=== PATIENT | female | born 1960 | race Caucasian/White ===

== ENCOUNTER 2017-08-27 03:05 | Emergency (ER) | payer OTHER ==
[2017-08-27] MEDS: KETOROLAC 60 MG INJ IM (04:46)
== END 2017-08-27 05:00 | disposition home or self-care (01) ==
LOC: FTE 03:05
DX: M54.42 Lumbago with sciatica, left side (principal)
CPT/HCPCS: 96372; 99284-25

== ENCOUNTER 2017-10-06 06:52 | Emergency (ER) | payer OTHER ==
[2017-10-06] MEDS: KETOROLAC 30 MG INJ IM (07:12)
[2017-10-06] MEDS: HYDROCODONE/APAP (5/325) TAB PO (07:12)
[2017-10-06] MEDS: ONDANSETRON (ODT) 4 MG TAB ODT (07:12)
== END 2017-10-06 07:32 | disposition home or self-care (01) ==
LOC: FTE 06:52
DX: M25.552 Pain in left hip (principal); I10 Essential (primary) hypertension
CPT/HCPCS: 96372; 99284-25

== ENCOUNTER 2017-10-09 02:36 | Emergency (ER) | payer OTHER ==
[2017-10-09] MEDS: morphine 2 MG INJ IV ×2 (03:35→03:44)
[2017-10-09] MEDS: ONDANSETRON 4 MG INJ IV (03:36)
[2017-10-09 03:55] LABS: ADD MAN DIFF? NO
[2017-10-09 04:05] LABS: BASOPHIL # 0.1 10^3/ul (0.0-0.1); BASOPHILS % 1.2 % (0.0-2.0); EOSINOPHILS # 0.2 10^3/ul (0.0-0.5); EOSINOPHILS % 3.5 % (0.0-7.0); HEMATOCRIT 35.8 % (37.0-47.0); LYMPHOCYTES # 1.1 10^3/ul (0.8-2.9); LYMPHOCYTES % 18.9 % (15.0-51.0); MEAN CORPUSCULAR HEMOGLOBIN 29.3 pg (29.0-33.0); MEAN CORPUSCULAR HGB CONC 33.5 g/dl (32.0-37.0); MEAN CORPUSCULAR VOLUME 87.5 fl (82.0-101.0); MEAN PLATELET VOLUME 9.4 fl (7.4-10.4); MONOCYTE # 0.7 10^3/ul (0.3-0.9); MONOCYTES % 11.4 % (0.0-11.0); NEUTROPHIL # 3.9 10^3/ul (1.6-7.5); NEUTROPHILS % 64.7 % (39.0-77.0); PLATELET COUNT 397 10^3/UL (140-415); RED BLOOD COUNT 4.09 10^6/ul (4.20-5.40)
[2017-10-09 04:15] LABS: INR 1.09; PROTIME 14.3 Sec (11.9-14.9); PT RATIO 1.1
[2017-10-09 04:16] LABS: PARTIAL THROMBOPLASTIN TIME 33.1 Sec (25.0-35.0)
[2017-10-09 04:18] LABS: ANION GAP 16 (8-16); BLOOD UREA NITROGEN 18 mg/dl (7-20); CARBON DIOXIDE 27 mmol/L (21-31); CHLORIDE 105 mmol/L (97-110); CREATININE 0.58 mg/dl (0.44-1.00); GLUCOSE 92 mg/dl (70-220); POTASSIUM 3.8 mmol/L (3.5-5.1); SODIUM 144 mmol/L (135-144)
[2017-10-09 04:26] LABS: B-TYPE NATRIURETIC PEPTIDE 75 PG/ML (0-125)
== END 2017-10-09 06:05 | disposition home or self-care (01) ==
LOC: E/R 02:36
DX: L03.116 Cellulitis of left lower limb (principal); R60.0 Localized edema; L03.115 Cellulitis of right lower limb; I10 Essential (primary) hypertension
CPT/HCPCS: 36415; 71045; 80048; 83880; 85025; 85610; 85730; 96374; 96375; 99284-25

== ENCOUNTER 2018-01-05 03:14 | Emergency (ER) | payer OTHER ==
[2018-01-05] MEDS: ONDANSETRON (ODT) 4 MG TAB ODT (03:50)
[2018-01-05] MEDS: morphine 4 MG/ML VIAL IM (03:51)
== END 2018-01-05 04:27 | disposition home or self-care (01) ==
LOC: FTE 03:14
DX: G89.4 Chronic pain syndrome (principal)
CPT/HCPCS: 96372; 99284-25

== ENCOUNTER 2018-06-26 19:16 | Emergency (ER) | payer OTHER ==
[2018-06-26 22:43] LABS: URINE BLOOD (Dip) POC Trace-intact (NEGATIVE); URINE GLUCOSE (Dip) POC Negative (NEGATIVE); URINE KETONES (Dip) POC Negative (NEGATIVE); URINE LEUKOCYTE EST (Dip) POC Negative (NEGATIVE); URINE NITRITE (Dip) POC Negative (NEGATIVE); URINE TOTAL PROTEIN POC Negative (NEGATIVE)
[2018-06-26] MEDS: PHENAZOPYRIDINE 100 MG TAB PO (23:46)
[2018-06-26] MEDS: ACETAMINOPHEN 325 MG TAB PO (23:46)
[2018-06-26] MEDS: CEPHALEXIN 500 MG CAP PO (23:46)
== END 2018-06-26 23:50 | disposition home or self-care (01) ==
LOC: FTE 19:16
DX: R30.9 Painful micturition, unspecified (principal)
CPT/HCPCS: 81003; 87086; 99284